=== PATIENT | male | born 1935 | race Caucasian/White ===

== ENCOUNTER 2020-08-06 18:13 | Emergency (ER) | payer MEDICARE ==
[~2020-08-06] VITALS: Ht 185.4 cm; Wt 116.6 kg
[2020-08-06] MEDS ORDERED: MOVANTIK12.5 MG PO (18:31)
[2020-08-06] MEDS ORDERED: KLOR-CON 10 ER10 MEQ PO (18:31)
[2020-08-06] MEDS ORDERED: MS CONTIN 30 MG30 M1 PO (18:31)
[2020-08-06] MEDS ORDERED: FUROSEMIDE 40 M40 MG PO (18:32)
[2020-08-06] MEDS ORDERED: CARDURA XL8 MG PO (18:32)
[2020-08-06] MEDS ORDERED: LIPITOR10 MG PO (18:33)
[2020-08-06] MEDS ORDERED: LOTENSIN10 MG PO (18:33)
[2020-08-06] MEDS ORDERED: TOPROL XL50 MG PO (18:33)
[2020-08-06] MEDS ORDERED: AMIODARONE HCL400 MG PO (18:34)
[2020-08-06 20:25] VITALS: BP 165/70
== END 2020-08-06 20:25 | disposition home or self-care (01) ==
LOC: M.ERS 18:13
DX: S51.812A Laceration without foreign body of left forearm, initial encounter (principal); S51.811A Laceration without foreign body of right forearm, initial encounter; S01.81XA Laceration without foreign body of other part of head, initial encounter; I10 Essential (primary) hypertension; I48.91 Unspecified atrial fibrillation; W05.0XXA Fall from non-moving wheelchair, initial encounter; Y93.89 Activity, other specified; Y92.89 Other specified places as the place of occurrence of the external cause; Y99.8 Other external cause status

== ENCOUNTER 2020-08-09 12:43 | Emergency (ER) | payer MEDICARE ==
[~2020-08-09] VITALS: Ht 185.4 cm; Wt 116.1 kg
[~2020-08-09 12:43] MED LIST: AMIODARONE HCL400 MG PO; CARDURA XL8 MG PO; FUROSEMIDE 40 M40 MG PO; KLOR-CON 10 ER10 MEQ PO; LIPITOR10 MG PO; LOTENSIN10 MG PO; MOVANTIK12.5 MG PO; MS CONTIN 30 MG30 M1 PO; TOPROL XL50 MG PO
[2020-08-09] MEDS ORDERED: KEFLEX500 M1 PO (13:03)
[2020-08-09 13:39] VITALS: BP 144/49
== END 2020-08-09 13:40 | disposition home or self-care (01) ==
LOC: M.ERS 12:43
DX: S01.81XA Laceration without foreign body of other part of head, initial encounter (principal); S51.812A Laceration without foreign body of left forearm, initial encounter; Z48.01 Encounter for change or removal of surgical wound dressing; I10 Essential (primary) hypertension; I48.91 Unspecified atrial fibrillation; W18.39XA Other fall on same level, initial encounter; Y93.89 Activity, other specified; Y92.89 Other specified places as the place of occurrence of the external cause; Y99.8 Other external cause status